=== PATIENT | female | born 1945 | race Caucasian/White ===

== ENCOUNTER 2018-10-02 00:20 | Inpatient (IN) | payer MEDICARE, OTHER ==
[2018-10-02] MEDS ORDERED: ONDANSETRON HCL IV 4 MG/2 ML VIAL IV ONE (00:39)
[2018-10-02] MEDS ORDERED: SODIUM CHLORIDE 0.9% 500 ML IV ONE (00:39)
--- NOTE | 2018-10-02 00:39 | Emergency Department Record ---
History of Present Illness - General Chief Complaint: Chest Pain Stated Complaint: STOMACH CHEST PAIN Time Seen by Provider: 10/02/18 00:29 Source: Patient Mode of Arrival: Ambulatory Limitations: No limitations - History of Present Illness Initial Comments: The patient is here due to upper abdominal pain over the last 3 hours. The pain came on fairly quickly and intermittently radiates up into the chest and even to the back at times. She has had nausea but no vomiting. The patient denies any lower AP, recent fever, chills, CP, SOB or RUTH. She also denies any hx of any abdominal surgeries. The patient states she may have had a reaction to IV dye in the past but is not sure. She thinks she had a rash to it but had no RUTH , SOB, swelling, or trouble swallowing. MD Complaint: Other Onset/Timin -: Days(s) Onset: During rest Pain Location: Substernal Severity: Severe Severity scale (1-10): 9 Quality: Sharp, Tightness Consistency: Constant, Getting worse Improves With: Nothing Worsens With: Nothing Treatments Prior to Arrival: None - Related Data Home Medications Medication Instructions Recorded Confirmed Last Taken Levothyroxine Sodium [Levoxyl] 100 mcg PO DAILY 10/02/18 10/02/18 Unknown Allergies Allergy/AdvReac Type Severity Reaction Status Date / Time DYE? AdvReac MINOR RASH Uncoded 10/02/18 01:06 Travel Screening - Travel/Exposure Within Last 30 Days Have you traveled within the last 30 days?: No Review of Systems Constitutional: Denies: Chills, Fever Eyes: Denies: Eye discharge ENT: Denies: Congestion Respiratory: Denies: Cough, Dyspnea Cardiovascular: Denies: Arrhythmia Endocrine: Denies: Fatigue Gastrointestinal: Denies: Abdominal pain Genitourinary: Denies: Dysuria Musculoskeletal: Denies: Arthralgia Skin: Denies: Bruising Past Medical History - SOCIAL HISTORY Smoking Status: Never smoker Alcohol Use: None Drug Use: None - RESPIRATORY Hx Respiratory Disorders: No - CARDIOVASCULAR Hx Cardio Disorders: No - NEURO Hx Neuro Disorders: No - GI Hx GI Disorders: No - Hx Genitourinary Disorders: No - ENDOCRINE Hx Endocrine Disorders: No - MUSCULOSKELETAL Hx Musculoskeletal Disorders: No - PSYCH Hx Psych Problems: No - HEMATOLOGY/ONCOLOGY Hx Hematology/Oncology Disorders: No Family Medical History Any Significant Family History?: No Physical Exam - General General Appearance: Alert, Oriented x3, Cooperative, Mild distress (due to AP.) - Head Head exam: Atraumatic, Normocephalic - Eye Eye exam: Normal appearance, PERRL - ENT Throat exam: Normal inspection. negative: Tonsillar erythema, Tonsillar exudate - Neck Neck exam: Normal inspection, Full ROM. negative: Tenderness - Respiratory Respiratory exam: Normal lung sounds bilaterally. negative: Respiratory distress - Cardiovascular Cardiovascular Exam: Regular rate, Normal rhythm, Normal heart sounds - GI/Abdominal GI/Abdominal exam: Soft, Tenderness (There is reproducible epigastric tenderness.). negative: Rebound, Rigid - Extremities Extremities exam: Normal inspection, Full ROM, Normal capillary refill. negative: Tenderness - Neurological Neurological exam: Alert, Normal gait. negative: Abnormal gait, Motor sensory deficit Course Vital Signs 10/02/18 00:27 Temperature 98.0 F Pulse Rate 67 Respiratory 20 Rate Blood Pressure 189/102 Pulse Ox 97 - Reevaluation(s) Reevaluation #1: The patient is doing a lot better at this time. Her pain is much improved after the Dilaudid. It appears the patient's Lipase is very elevated which I do believe is the cause of her symptoms. 10/02/18 01:15 Reevaluation #2: The patient is doing better at this time. Her pain is mostly gone and she now is resting comfortably. We are waiting on her CT at this time. 10/02/18 02:01 Reevaluation #3: The patient is still having some pain in the upper abdomen but is improved. I did again discuss the diagnosis of Pancreatitis with her and the need for hospital admission. The CT also does demonstrate stranding around the pancreas. We will place a consult to Dr. Larose for this AM and continue with the admission process. 10/02/18 02:39 Medical Decision Making - Data Complexity MDM Data: Labs Ordered and/or Reviewed, X-Ray Ordered and/or Reviewed, EKG Ordered and/or Reviewed - Lab Data Result diagrams: 10/02/18 00:35 10/02/18 00:35 - EKG Data -: EKG Interpreted by Me EKG: No Acute Changes, Normal EKG - Radiology Data Radiology results: Report reviewed (CT: pancreatitis.) Disposition Disposition: Admit Clinical Impression: Pancreatitis, acute Qualifiers: Pancreatitis type: other Acute pancreatitis complication: unspecified Qualified Code(s): K85.80 - Other acute pancreatitis without necrosis or infection Disposition: Still a Patient at [facility] Decision to Admit: Admit from ER Decision to Admit Date: 10/02/18 Decision to Admit Time: 02:41 Accepting Physician: Louie Condition: (2) Stable Referrals: [facility] Specialty Clinics [Provider Group] Forms: Patient Portal Access Time of Disposition: 02:41 Quality - Quality Measures Quality Measures: N/A - Blood Pressure Screening View Details: Yes Does Patient Have Any of the Following: No Blood Pressure Classification: Hypertensive Reading Systolic Measurement: 189 Diastolic Measurement: 102 Screening for High Blood Pressure: < First Hypertensive BP, F/U Documented > [ [id number]] First Hypertensive Follow-up Interventions: Referral to alternative/primary care provider.
[2018-10-02] MEDS ORDERED: HYDROMORPHONE HCL 2 MG/ML VIAL IVP ONE ×2 (00:40→02:34)
[2018-10-02 01:00] LABS: BASO % 0.1 % (0-6); EOS % 1.3 % (0-6); GRAN % 77.9 % (47-80); HEMATOCRIT 41.3 % (35.0-47.0); HEMOGLOBIN 13.2 gm/dl (11.6-16.0); LYMPH % 15.2 % (16-45); MEAN CELL VOLUME 89.4 fl (81-97); MEAN CORPUSCULAR HEMOGLOBIN 28.6 pg (27-33); MEAN PLATELET VOLUME 9.4 fl (7.4-10.4); MONO % 5.5 % (0-9); PLATELET COUNT 328 K/uL (130-400); RED BLOOD COUNT 4.62 M/uL (3.80-5.40); RED CELL DISTRIBUTION WIDTH 14.7 % (11.5-14.5); WHITE BLOOD COUNT W/O DIFF 11.6 K/uL (4.2-12.2)
[2018-10-02 01:06] LABS: BLOOD UREA NITROGEN 20 mg/dL (8-23)
[2018-10-02 01:07] LABS: CREATININE 0.9 mg/dL (0.5-0.9); EST GLOMERULAR FILTRATION RATE > 60 mL/min; TOTAL PROTEIN 7.1 g/dL (6.6-8.7)
[2018-10-02 01:09] LABS: GLUCOSE,RANDOM 185 mg/dL (74-109)
[2018-10-02 01:12] LABS: ALBUMIN 4.2 g/dL (4.0-5.0); ALKALINE PHOSPHATASE 96 U/L (35-104); ALT/SGPT 12 U/L (<33); AST/SGOT 13 U/L (10.0-35.0); BILIRUBIN,DIRECT < 0.2 mg/dL (0-0.3)
[2018-10-02] MEDS ORDERED: 0.9 % SODIUM CHLORIDE 1,000 ML BAG IV ONE (01:17)
[2018-10-02 01:22] LABS: LIPASE > 3000 U/L (13-60)
[2018-10-02] MEDS: 0.9 % SODIUM CHLORIDE 1000ML 1,000 ML IV PRN ×3 (03:00→21:50)
[2018-10-02] MEDS ORDERED: ONDANSETRON HCL IV 4 MG/2 ML VIAL IVP PRN (03:20)
[2018-10-02] MEDS ORDERED: PNEUM 23-VAL ADULT IM ONE (03:29)
[2018-10-02] MEDS: HYDROMORPHONE HCL 2 MG/ML VIAL IV PRN ×2 (06:00→09:54)
[2018-10-02 06:39] LABS: HEMOGLOBIN 11.9 gm/dl (11.6-16.0); MEAN CELL VOLUME 89.6 fl (81-97); MEAN CORPUSCULAR HEMOGLOBIN 28.1 pg (27-33); MEAN CORPUSCULAR HGB CONC 31.3 g/dl (32-36); MEAN PLATELET VOLUME 9.2 fl (7.4-10.4); PLATELET COUNT 276 K/uL (130-400); RED BLOOD COUNT 4.24 M/uL (3.80-5.40); RED CELL DISTRIBUTION WIDTH 14.7 % (11.5-14.5); WHITE BLOOD COUNT W/O DIFF 7.7 K/uL (4.2-12.2)
[2018-10-02 06:57] LABS: BLOOD UREA NITROGEN 16 mg/dL (8-23); CREATININE 0.6 mg/dL (0.5-0.9); EST GLOMERULAR FILTRATION RATE > 60 mL/min; GLUCOSE,RANDOM 158 mg/dL (74-109)
[2018-10-02 07:08] LABS: PLATELET ESTIMATE NORMAL (NORMAL)
[2018-10-02 07:09] LABS: LIPASE 2020 U/L (13-60)
--- NOTE | 2018-10-02 08:29 | CT SCAN REPORT ---
EXAM: CT OF THE ABDOMEN AND PELVIS WITHOUT CONTRAST HISTORY: EPIGASTRIC PAIN AND VOMITING FOR ONE DAY. TECHNIQUE: Helical CT examination of the abdomen and pelvis was performed without oral or intravenous contrast administration. Lack of oral and IV contrast utilization limits evaluation of the bowel and solid viscera respectively. Comparison: CT angiogram of the chest with contrast dated 06/04/12. Abdominal ultrasound dated 06/12/12. FINDINGS: A moderate sized hiatal hernia is present. The heart is not enlarged. No pleural or pericardial effusion. Mild patchy opacities within the dependent lung bases, likely atelectasis. There is redemonstration of a well circumscribed hypodense mass within the central right liver lobe measuring 2.2 x 2.3 cm. This has a density of 42 Hounsfield units. This mass is echogenic on prior 2012 ultrasound examination. It has not significantly changed in size since 2012. Hemangioma is the most likely etiology. Focal fatty infiltration is less likely. The liver is otherwise normal in appearance. The gallbladder is without stone, wall thickening, or pericholecystic fluid. No biliary ductal dilatation. The spleen, adrenal glands, and kidneys are normal in appearance. There is peripancreatic fat stranding associated with a small amount of fluid within the anterior pararenal space both on the right and the left. These findings are suspicious for acute pancreatitis. Duodenitis is less likely. No extraluminal air. No intraabdominal nor retroperitoneal lymphadenopathy. Mild diffuse atherosclerosis without aneurysmal dilatation of the abdominal aorta nor iliac artery. There is coarse calcification in the posterior aspect of the uterine body/fundus. This measures 7 mm in maximum diameter and is likely vascular or a calcified fibroid. There is a low density left adnexal mass measuring 3.8 x 3.1 cm. This has fluid density and is likely a benign cyst though cystic neoplasm would be difficult to entirely exclude. No other evidence of pelvic mass nor adenopathy though evaluation of the inferior pelvis is limited by beam hardening artifact from a right hip prosthesis. No intrinsic urinary bladder abnormality. No gross bowel dilatation. Occasional diverticula are noted within the left colon without evidence of diverticulitis. The appendix is visualized and normal in appearance. There is a small fat filled umbilical hernia. No suspicious lytic or blastic bone lesion. There are cystic changes within the superolateral aspect of the [place] right acetabulum, likely degenerative. There are degenerative changes scattered throughout the visualized spine. IMPRESSION: 1. THERE IS PERIPANCREATIC FAT STRANDING/EDEMA WITH A SMALL AMOUNT OF FLUID WITHIN THE ANTERIOR PARARENAL SPACE BOTH ON THE RIGHT AND THE LEFT. THESE FINDINGS ARE SUSPICIOUS FOR ACUTE PANCREATITIS. DUODENITIS IS LESS LIKELY. 2. COLONIC DIVERTICULOSIS WITHOUT EVIDENCE OF DIVERTICULITIS. 3. HIATAL HERNIA. 4. HYPERDENSE MASS IN THE CENTRAL RIGHT LIVER LOBE UNCHANGED SINCE 2012. THIS IS LIKELY A BENIGN HEMANGIOMA. 5. THERE IS A SIMPLE APPEARING CYSTIC MASS ARISING FROM THE LEFT OVARY. BENIGN CYST IS THE FAVORED ETIOLOGY. FURTHER EVALUATION WITH PELVIC ULTRASOUND ON AN OUTPATIENT BASIS WOULD BE OF BENEFIT. [facility]BER: [id number] [facility]
[2018-10-02] MEDS: PANTOPRAZOLE SODIUM IV 40 MG VIAL IV SCH (09:50)
--- NOTE | 2018-10-02 12:21 | History & Physical ---
History of Present Illness - Date of Service Date of Service for History & Physical: 10/02/18 - History of Present Illness Admitting Diagnosis: 1. Acute Pancreatitis History of Present Illness: Mrs. Collins presented to the ED early this morning with c/o upper abdominal pain that had abruptly began 3 hours prior. She stated that the pain intermittently readiated up into her chest and to her back at times. She c/o nausea, no vomiting. She denied any lower abdominal pain, fever, chills, SOB or RUTH. She denies hx of abdominal surgeries. Her history includes hypothyroidism. She denies hx of ETOH use or previous pancreatitis. In the ED, her BP was 189/102, HR 67, RR 20, T 98.0, and 97% on room air. Labs demonstrated d dimer of 1.2, amylase of >3,000. CT demonstrated stranding around pancreas. She was admitted for pancreatitis, consult to Dr. Larose ordered. Plan IV hydration, pain management. 10/02/18: 1100- Dr. Larose saw pt and is ordering abdominal ultrasound, bilateral LE dopplers (for elevated D dimer), and total bili for tomorrow morning. Amylase this morning was 2,020. Pt. reports improved abdominal pain. Plan to continue NPO, pain management with IV dilaudid 0.5mg q4h prn, zofran 4mg ivp q4h prn nausea, protonix 40mg/day IV, and IVF at 125ml/hr. PCP: Travel Screening - Travel/Exposure Within Last 30 Days Have you traveled within the last 30 days?: No - Travel/Exposure Within Last Year Have you traveled outside the [place] in the last year?: No - Additonal Travel Details Have you been exposed to anyone with a communicable illness?: No - Travel Symptoms Symptom Screening: None Review of Systems Constitutional: Denies: Chills, Fever Eyes: Denies: Eye discharge ENT: Denies: Congestion Respiratory: Denies: Cough, Dyspnea Cardiovascular: Denies: Arrhythmia Endocrine: Denies: Fatigue Gastrointestinal: Denies: Abdominal pain Genitourinary: Denies: Dysuria Musculoskeletal: Denies: Arthralgia Skin: Denies: Bruising Past Medical History - SOCIAL HISTORY Smoking Status: Never smoker Alcohol Use: None Drug Use: None - RESPIRATORY Hx Respiratory Disorders: No - CARDIOVASCULAR Hx Cardio Disorders: No - NEURO Hx Neuro Disorders: No - GI Hx GI Disorders: No - Hx Genitourinary Disorders: No - ENDOCRINE Hx Endocrine Disorders: Yes Hx Diabetes: No Hx Thyroid Disease: Yes - MUSCULOSKELETAL Hx Musculoskeletal Disorders: No - PSYCH Hx Psych Problems: No - HEMATOLOGY/ONCOLOGY Hx Hematology/Oncology Disorders: No Family Medical History Any Significant Family History?: No H&P Meds/Allergies - Allergies Allergies: Allergies Allergy/AdvReac Type Severity Reaction Status Date / Time DYE? AdvReac MINOR RASH Uncoded 10/02/18 01:06 - Home Medications Home Medications Medication Instructions Recorded Confirmed Last Taken Levothyroxine Sodium [Levoxyl] 100 mcg PO DAILY 10/02/18 10/02/18 Unknown - Active Medications Active Medications: Current Medications Hydromorphone HCl (Dilaudid) 0.5 mg IV Q4H PRN PRN Reason: ABDOMINAL PAIN Last Admin: 10/02/18 09:54 Dose: 0.5 mg Sodium Chloride () 1,000 mls @ 125 mls/hr IV .Q8H PRN PRN Reason: LARGE VOLUME IV Last Admin: 10/02/18 11:26 Dose: 125 mls/hr Levothyroxine Sodium (Synthroid) 100 mcg PO DAILYTHY ENRIQUE Ondansetron HCl (Zofran) 4 mg IVP Q4H PRN PRN Reason: NAUSEA Last Admin: 10/02/18 06:05 Dose: 4 mg Pantoprazole Sodium (Protonix Iv) 40 mg IV DAILY ENRIQUE Last Admin: 10/02/18 09:50 Dose: 40 mg Physical Exam - Vital Signs Vital Signs: Vital Signs - Last 24 Hrs Temp Pulse Pulse Resp BP BP Pulse Ox 10/02/18 09:00 12 10/02/18 08:09 97.8 F 60 12 120/55 98 10/02/18 05:20 98.4 F 56 L 18 125/74 99 10/02/18 03:20 97.5 F L 77 18 158/79 99 10/02/18 02:54 78 20 165/86 95 10/02/18 02:00 77 20 160/105 98 10/02/18 00:27 98.0 F 67 20 189/102 97 - General General Appearance: Alert, Oriented x3, Cooperative, No acute distress Limitations: No limitations - Head Head exam: Atraumatic, Normocephalic - Eye Eye exam: Normal appearance, PERRL - ENT Throat exam: Normal inspection. negative: Tonsillar erythema, Tonsillar exudate - Neck Neck exam: Normal inspection, Full ROM. negative: Tenderness - Respiratory Respiratory exam: Normal lung sounds bilaterally. negative: Respiratory distress - Cardiovascular Cardiovascular Exam: Regular rate, Normal rhythm, Normal heart sounds - GI/Abdominal GI/Abdominal exam: Soft. negative: Rebound, Rigid, Tenderness - Extremities Extremities exam: Normal inspection, Full ROM, Normal capillary refill. negative: Tenderness - Neurological Neurological exam: Alert, Normal gait. negative: Abnormal gait, Motor sensory deficit Results - Labs Result Diagrams: 10/02/18 06:17 10/02/18 06:17 Labs Last 24 Hours: Laboratory Results - last 24 hr 10/02/18 10/02/18 10/02/18 00:35 00:35 00:35 WBC 11.6 RBC 4.62 Hgb 13.2 Hct 41.3 MCV 89.4 MCH 28.6 MCHC 32.0 RDW 14.7 H Plt Count 328 MPV 9.4 Gran % 77.9 Neutrophils % Lymphocytes % 15.2 L Monocytes % 5.5 Eosinophils % 1.3 Basophils % 0.1 Lymphocytes Monocytes Platelet Estimate RBC Morphology D-Dimer 1.20 H Sodium 140 Potassium 4.0 Chloride 102 Carbon Dioxide 25.0 Anion Gap 13.0 BUN 20 Creatinine 0.9 Estimated GFR > 60 Random Glucose 185 H Lactic Acid Cancelled Calcium 9.5 Total Bilirubin 1.20 H Direct Bilirubin < 0.2 AST 13 ALT 12 Alkaline Phosphatase 96 Troponin T < 0.010 Total Protein 7.1 Albumin 4.2 Lipase > 3000 H 10/02/18 10/02/18 10/02/18 00:50 06:17 06:17 WBC 7.7 RBC 4.24 Hgb 11.9 Hct 38.0 MCV 89.6 MCH 28.1 MCHC 31.3 L RDW 14.7 H Plt Count 276 MPV 9.2 Gran % Neutrophils % 80.0 Lymphocytes % Monocytes % Eosinophils % Not Reportable Basophils % Not Reportable Lymphocytes 17.0 Monocytes 3.0 Platelet Estimate Normal RBC Morphology Normal D-Dimer Sodium 141 Potassium 4.1 Chloride 107 Carbon Dioxide 23.0 Anion Gap 11.0 BUN 16 Creatinine 0.6 Estimated GFR > 60 Random Glucose 158 H Lactic Acid 1.6 Calcium 8.4 L Total Bilirubin Direct Bilirubin AST ALT Alkaline Phosphatase Troponin T Total Protein Albumin Lipase 2019 H - Imaging and Cardiology CT scan - abdomen Status: Report reviewed (CT demonstrated fat stranding/edema with sm fluid around pancreas) VTE H&P Assessment - Risk for VTE Risk for VTE: Yes Risk Level: Low Risk Assessment Date: 10/02/18 Risk Assessment Time: 12:22 VTE Orders Placed or Will Be Placed: Yes Plan - Inpatient Certification Inpatient Certification: Admit to inpatient care: Based on my medical assessment, after consideration of patient's risk factors (age, co-morbidities and patient presenting symptoms and acuity), I expect that this patient will remain in the hospital greater than or equal to two midnights and that the services needed warrant inpatient care because: Patient Risk Factors: [] Estimated length of stay: [] The patient may reasonably be expected to be discharged or transferred to a hospital within 96 hours after admission to [facility]. Services needed: [] Post hospital care (if known): [] I certify that my determination is in accordance with my understanding of Medicare requirements for reasonable and necessary inpatient services. - Detailed Diagnosis and Plan (1) Pancreatitis, acute Current Visit: Yes Status: Acute Qualifiers: Pancreatitis type: other Acute pancreatitis complication: unspecified Qualified Code(s): K85.80 - Other acute pancreatitis without necrosis or infection Base Code: K85.90 - ACUTE PANCREATITIS WITHOUT NECROSIS OR INFECTION, UNSP Comment: 10/02/18: -CT demonstrated fat stranding/edema with sm fluid around pancreas -Dr. Larose saw pt and is ordering abdominal ultrasound, bilateral LE dopplers ( for elevated D dimer), and total bili for tomorrow morning. -Amylase this morning was 2,020. -Pt. reports improved abdominal pain. -Plan to continue NPO, pain management with IV dilaudid 0.5mg q4h prn, zofran 4mg ivp q4h prn nausea, protonix 40mg/day IV, and IVF at 125ml/hr. (2) Elevated d-dimer Current Visit: Yes Status: Acute Base Code: R79.89 - OTHER SPECIFIED ABNORMAL FINDINGS OF BLOOD CHEMISTRY Comment: 10/02/18: -D-dimer in ED was 1.20 -Bilateral LE dopplers ordered today (3) At risk for deep venous thrombosis Current Visit: Yes Status: Acute Base Code: Z91.89 - OTH PERSONAL RISK FACTORS, NOT ELSEWHERE CLASSIFIED Comment: 10/02/18: -40mg SC lovenox ordered for prophylaxis (4) Full code status Current Visit: Yes Status: Acute Base Code: Z78.9 - OTHER SPECIFIED HEALTH STATUS Comment: 10/02/18: -Pt. is a full code
[2018-10-02] MEDS: LEVOTHYROXINE SODIUM 100 MCG TABLET PO SCH (12:39)
[2018-10-02] MEDS: HYDROCODONE/APAP 5/325MG TABLET PO PRN (20:40)
[2018-10-02] MEDS ORDERED: ENOXAPARIN 40 MG/0.4 ML SYR SQ SCH (22:00)
--- NOTE | 2018-10-03 05:01 | ULTRASOUND REPORT ---
EXAM: COMPLETE ABDOMEN ULTRASOUND HISTORY: PANCREATITIS, ABDOMINAL PAIN. TECHNIQUE: Complete abdomen ultrasound was obtained. Comparison: CT of the abdomen and pelvis 10/02/18. FINDINGS: Limited visualization of the pancreas due to shadowing bowel gas, better seen on same day CT. The visualized abdominal aorta appears nondilated. Unremarkable appearance of the visualized hepatic parenchyma, some areas are poorly seen due to shadowing artifact. The right renal length is 9.2 cm. No hydronephrosis. No shadowing calculus or focal mass demonstrated. Mobile calculus within the gallbladder lumen. No gallbladder wall thickening or pericholecystic fluid seen. The common bile duct measures up to 4 mm in diameter. The spleen measures 10.2 cm in length. Unremarkable appearance of the visualized parenchyma. The left renal length is 11.6 cm. No hydronephrosis, shadowing calculus, or focal mass demonstrated. Unremarkable appearance of the inferior vena cava at the level of the liver. IMPRESSION: 1. CHOLELITHIASIS WITHOUT SONOGRAPHIC EVIDENCE OF ACUTE CHOLECYSTITIS. 2. NO BILIARY DUCTAL DILATATION. 3. LIMITED VISUALIZATION OF THE PANCREAS DUE TO SHADOWING BOWEL GAS. JOB NUMBER: [id number] [facility]
--- NOTE | 2018-10-03 05:08 | US VENOUS DOPPLER REPORT ---
EXAM: BILATERAL LOWER EXTREMITY VENOUS DUPLEX ULTRASOUND HISTORY: OCCASIONAL RIGHT LEG PAIN, BILATERAL ANKLE SWELLING. TECHNIQUE: Bilateral lower extremity venous Duplex ultrasound was obtained with assessment of compression, augmentation and color flow. Comparison: None. FINDINGS: No evidence of thrombus within the right external iliac, common femoral, profunda femoral, proximal/mid/distal femoral, popliteal, gastrocnemius , peroneal, posterior tibial, or anterior tibial veins. No evidence of thrombus within the left external iliac, common femoral, profunda femoral, proximal/mid/distal femoral, popliteal, gastrocnemius, posterior tibial, peronea, or anterior tibial veins. Target examination in area of a described palpable abnormality in the right popliteal fossa, in this region there is a ovoid solid appearing structure of similar echogenicity to adjacent superficial fat measuring approximately 3.5 x 1.3 x 4.6 cm. IMPRESSION: 1. NO EVIDENCE OF DEEP VENOUS THROMBOSIS IN EITHER LOWER EXTREMITY. 2. SOLID APPEARING ECHOGENIC STRUCTURE IN THE RIGHT POPLITEAL FOSSA, REPORTEDLY CORRESPONDING TO A PALPABLE LUMP. ITS APPEARANCE IS INDETERMINATE BY ULTRASOUND, BUT COULD REPRESENT A LIPOMATOUS LESION SUCH A LIPOMA. JOB [facility]BER: [id number] [facility]
[2018-10-03] MEDS: 0.9 % SODIUM CHLORIDE 1000ML 1,000 ML IV PRN (05:52)
[2018-10-03] MEDS: LEVOTHYROXINE SODIUM 100 MCG TABLET PO SCH (05:59)
[2018-10-03] MEDS: HYDROCODONE/APAP 5/325MG TABLET PO PRN (06:04)
[2018-10-03 06:31] LABS: BASO % 0.1 % (0-6); GRAN % 77.6 % (47-80); HEMOGLOBIN 12.3 gm/dl (11.6-16.0); LYMPH % 15.4 % (16-45); MEAN CORPUSCULAR HEMOGLOBIN 29.1 pg (27-33); MEAN CORPUSCULAR HGB CONC 32.4 g/dl (32-36); MONO % 5.9 % (0-9); PLATELET COUNT 245 K/uL (130-400); RED BLOOD COUNT 4.22 M/uL (3.80-5.40); RED CELL DISTRIBUTION WIDTH 14.7 % (11.5-14.5); WHITE BLOOD COUNT W/O DIFF 7.9 K/uL (4.2-12.2)
[2018-10-03 06:53] LABS: ALB/GLOB RATIO 1.4 (1.1-1.8); ALBUMIN 3.7 g/dL (4.0-5.0); ALKALINE PHOSPHATASE 78 U/L (35-104); ALT/SGPT 9 U/L (<33); AST/SGOT 10 U/L (10.0-35.0); BLOOD UREA NITROGEN 8 mg/dL (8-23); CREATININE 0.6 mg/dL (0.5-0.9); EST GLOMERULAR FILTRATION RATE > 60 mL/min; GLUCOSE,RANDOM 148 mg/dL (74-109); LIPASE 279 U/L (13-60); TOTAL PROTEIN 6.4 g/dL (6.6-8.7)
--- NOTE | 2018-10-03 09:50 | Medical Records Consult ---
DATE OF CONSULTATION: 10/02/2018 REASON FOR CONSULTATION: Pancreatitis. INDICATIONS: The patient is a 72-year-old female who states she suffered an acute onset of abdominal pain last night. She described this as in her mid abdomen with some radiation to her chest. She denied any shortness of breath, fevers, chills, or other. She was mildly nauseated with this. She stated that she may have had something similar happen to her in the past but she is unclear. PAST MEDICAL HISTORY: Negative for any significant illnesses. Hypothyroidism. PAST SURGICAL HISTORY: She denies any abdominal surgery. MEDICATIONS: Synthroid. ALLERGIES: IV DYE. SOCIAL HISTORY: She denies any smoking history. She has 1-2 beers every month or so. PHYSICAL EXAMINATION: VITAL SIGNS: Stable. She is afebrile. HEART: Regular rate and rhythm. LUNGS: Clear. ABDOMEN: Soft. Mild epigastric tenderness. There is no guarding or rebound. Bowel sounds are noted. EXTREMITIES: +1 edema. DIAGNOSTIC DATA: I did review her laboratory values and imaging studies which were done at [facility]. Laboratory values reveal admission lipase at 2020 but this did come up to over 3000 today. Her bili this morning was 1.2. This was not fractionated. She also had an elevated D-dimer at 1.2. White count was 11.6. CT scan was done which did show peripancreatic edema consistent with pancreatitis. IMPRESSION AND PLAN: 1. Pancreatitis, unknown clear etiology. She denies any significant alcohol history. I will obtain an abdominal ultrasound to better delineate her gallbladder. Her bilirubin is 1.2. This should be redrawn tomorrow. 2. Bilateral leg pain. The patient states that this has been going on for a bit. Due to the leg pain as well as elevated D-dimer, I did order a Doppler of bilateral lower extremities. This will be done today. I would continue aggressive IV resuscitation, monitor her urine output closely. If there are no gallstones on ultrasound or sludge, this certainly may be idiopathic pancreatitis and she could avoid an operation in the future. We will follow along with you. Thank you for this referral. CC: Kyle Palma MD [facility]ENTER[facility]ela
[2018-10-03] MEDS: PANTOPRAZOLE SODIUM IV 40 MG VIAL IV SCH (10:30)
--- NOTE | 2018-10-03 11:00 | Discharge Summary ---
Providers Discharge Summary Date: 10/03/18 Date of admission: 10/02/18 03:06 Expected Date of Discharge: 10/03/18 Attending physician: HERLINDA ALVAREZ Primary care physician: TYLER ACEVEDO N.P. Consults: Consult Orders 10/02/18 02:42 Consult NOW Consulting Provider: Farooq Larose Physician Instructions: Please eval today 10/02. Reason For Exam: acute pancreatitis Physical Exam - Vital Signs Vital Signs: Vital Signs - Last 24 Hrs Temp Pulse Resp BP Pulse Ox 10/03/18 04:00 98.0 F 73 20 135/67 96 10/02/18 20:00 97.6 F 70 20 137/60 96 10/02/18 16:00 62 12 124/68 10/02/18 12:00 97.8 F 59 L 12 114/64 96 - General General Appearance: Alert, Oriented x3, Cooperative, No acute distress Limitations: No limitations - Head Head exam: Atraumatic, Normocephalic - Eye Eye exam: Normal appearance, PERRL - ENT Throat exam: Normal inspection. negative: Tonsillar erythema, Tonsillar exudate - Neck Neck exam: Normal inspection, Full ROM. negative: Tenderness - Respiratory Respiratory exam: Normal lung sounds bilaterally. negative: Respiratory distress - Cardiovascular Cardiovascular Exam: Regular rate, Normal rhythm, Normal heart sounds - GI/Abdominal GI/Abdominal exam: Soft. negative: Rebound, Rigid, Tenderness - Extremities Extremities exam: Normal inspection, Full ROM, Normal capillary refill. negative: Tenderness - Neurological Neurological exam: Alert, Normal gait. negative: Abnormal gait, Motor sensory deficit Hospitalization - Hospitalization Admission Diagnosis: 1. Acute Pancreatitis - Problem List/Discharge Diagnosis (1) Pancreatitis, acute Status: Acute Discharge Diagnosis: Pancreatitis type: other Acute pancreatitis complication: unspecified Qualified Code(s): K85.80 - Other acute pancreatitis without necrosis or infection Base Code: K85.90 - ACUTE PANCREATITIS WITHOUT NECROSIS OR INFECTION, UNSP Comment: 10/03/18: -CT demonstrated fat stranding/edema with sm fluid around pancreas - Dr Larose surgical consult complete yesterday. Abdominal U/S completed and BLE venous dopplers. U/S- cholelithiasis without acute cholecystitis. Dopplers negative for DVT - Total bili up to 2.3 -Amylase this morning 279 -Pt. reports improved abdominal pain, but increased bloating. - Discussed today's findings with Dr Larose and will transfer to [facility] for GI consult and MRCP. (2) Elevated d-dimer Status: Acute Base Code: R79.89 - OTHER SPECIFIED ABNORMAL FINDINGS OF BLOOD CHEMISTRY Comment: 10/03/18: -D-dimer in ED was 1.20 -Bilateral LE dopplers negative for DVT (3) At risk for deep venous thrombosis Status: Acute Base Code: Z91.89 - OTH PERSONAL RISK FACTORS, NOT ELSEWHERE CLASSIFIED Comment: 10/03/18: -40mg SC lovenox ordered for prophylaxis (4) Full code status Status: Acute Base Code: Z78.9 - OTHER SPECIFIED HEALTH STATUS Comment: 10/03: -Pt. is a full code - Hospitalization Course Disposition: Acute Care Hospital Transfer Hospital Course: Mrs. Collins presented to the ED early this morning with c/o upper abdominal pain that had abruptly began 3 hours prior. She stated that the pain intermittently readiated up into her chest and to her back at times. She c/o nausea, no vomiting. She denied any lower abdominal pain, fever, chills, SOB or RUTH. She denies hx of abdominal surgeries. Her history includes hypothyroidism. She denies hx of ETOH use or previous pancreatitis. In the ED, her BP was 189/102, HR 67, RR 20, T 98.0, and 97% on room air. Labs demonstrated d dimer of 1.2, amylase of >3,000. CT demonstrated stranding around pancreas. She was admitted for pancreatitis, consult to Dr. Larose ordered. Plan IV hydration, pain management. 10/02/18: 1100- Dr. Larose saw pt and is ordering abdominal ultrasound, bilateral LE dopplers (for elevated D dimer), and total bili for tomorrow morning. Amylase this morning was 2,020. Pt. reports improved abdominal pain. Plan to continue NPO, pain management with IV dilaudid 0.5mg q4h prn, zofran 4mg ivp q4h prn nausea, protonix 40mg/day IV, and IVF at 125ml/hr. 10/03/18- Total bilirubin increased to 2.3, complaining of increased bloating. Not tolerating clear liquid diet. Case discussed with Dr Larose and will transfer to [facility] for GI consult and MRCP. Procedures: Imaging and X-Rays 10/02/18 01:13 ABDOMEN/PELVIS WO CONTRAST [CT] Stat 10/02/18 11:31 ABDOMEN, COMPLETE [US] Stat VENOUS DOPPLER LOWER [place]T [place] [US] Stat Cardiology Procedures 10/02/18 00:37 EKG NOW Abnormal Labs: Abnormal Lab Results 10/02/18 10/02/18 10/02/18 Range/Units 00:35 00:35 00:35 MCHC (32-36) g/dl RDW 14.7 H (11.5-14.5) % Lymphocytes % 15.2 L (16-45) % D-Dimer 1.20 H (0-0.59) mg/L FEU Random Glucose 185 H (74-109) mg/dL Calcium (8.8-10.2) mg/dL Total Bilirubin 1.20 H (0.2-1.0) mg/dL Total Protein (6.6-8.7) g/dL Albumin (4.0-5.0) g/dL Lipase > 3000 H (13-60) U/L 10/02/18 10/02/18 10/03/18 Range/Units 06:17 06:17 06:25 MCHC 31.3 L (32-36) g/dl RDW 14.7 H 14.7 H (11.5-14.5) % Lymphocytes % 15.4 L (16-45) % D-Dimer (0-0.59) mg/L FEU Random Glucose 158 H (74-109) mg/dL Calcium 8.4 L (8.8-10.2) mg/dL Total Bilirubin (0.2-1.0) mg/dL Total Protein (6.6-8.7) g/dL Albumin (4.0-5.0) g/dL Lipase 2020 H (13-60) U/L 10/03/18 Range/Units 06:25 MCHC (32-36) g/dl RDW (11.5-14.5) % Lymphocytes % (16-45) % D-Dimer (0-0.59) mg/L FEU Random Glucose 148 H (74-109) mg/dL Calcium 8.4 L (8.8-10.2) mg/dL Total Bilirubin 2.30 H (0.2-1.0) mg/dL Total Protein 6.4 L (6.6-8.7) g/dL Albumin 3.7 L (4.0-5.0) g/dL Lipase 279 H (13-60) U/L Condition at Discharge: (2) Stable Discharge Medications - Discharge Medications Home Medications: Ambulatory Orders Levothyroxine Sodium [Levoxyl] 100 mcg PO DAILY 10/02/18 [Last Taken Unknown] Discharge Plan - Discharge Instructions Activity at Discharge: Increase Activity as Tolerated Diet at Discharge: Other (clear liquid) Instructions: Pancreatitis (DC) Quality Measures - Quality Measures Quality Measures: Advance Directives, Documentation of Current Medications in Medical Record, Elder Maltreatment Screen and Follow-Up Plan, Screening for High Blood Pressure and F/U Documented - Current Medications Quality Measure: Measure #130: Documentation of Current Medications Documentation of Current Medications: <Current Medications Documented/Reviewed> [G8427] - Blood Pressure Screening Quality Measure: Screening for High Blood Pressure and Follow-Up Documented Does Patient Have Any of the Following: No Blood Pressure Classification: Hypertensive Reading Systolic Measurement: 189 Diastolic Measurement: 102 Screening for High Blood Pressure: < Normal BP, F/U Not Required > [G8783] - Advance Directives Quality Measure: Measure #47: Care Plan Advance Directives Established: Yes Advance Directives Information Provided To Patient: No Advance Directives on File: No Living Will: No Power of Garment Finisher: No Advance Care Planning: <Care Plan/Decision Maker Documented; Discussed & Documented> [[id number]] - Elder Abuse Suspicion Index Screening: Elder Abuse Suspicion Index Screening Rely on people for bathing, dressing, shopping, banking, etc: No Prevented from getting food, clothes, medication, etc: No Made to feel shamed or threatened by someone: No Forced to sign papers or use money against will: No Feel afraid, touched in ways not wanted or hurt physically: No Poor eye contact, withdrawn, malnourished, cuts or bruises: No Screening Result: Negative result EASI Reference Information: Krysta OSEGUERA, Jared Hernandez, Tony D, Daniel Shah.Development and validation of a tool to assist physicians identification of elder abuse: The Elder Abuse Suspicion Index (EASI ). Journal of Elder Abuse and Neglect, 2008; 20 (3): 276-300. - Elder Maltreatment Screen Quality Measures: Elder Maltreatment Screen and Follow-Up Plan Elder Maltreatment Screen: <Negative, No Follow-Up Plan Required> [G6180]
== END 2018-10-03 11:20 | disposition short-term general hospital (02) | DRG 440 ==
LOC: ER 00:20 → MEDSURG 03:06
PROVIDERS: ADMIT Internal Medicine; ATTEND Internal Medicine
DX: K85.80 Other acute pancreatitis without necrosis or infection (principal); R10.84 Generalized abdominal pain; R79.89 Other specified abnormal findings of blood chemistry; E03.9 Hypothyroidism, unspecified
CPT/HCPCS: 74176; 76700; 80048; 80053; 80076; 83605; 83690; 84484; 85025; 85027; 85379; 93005; 93010; 93970; 96374; 96375; 96376; 99223; 99239; 99285; C9113; J1650; J2405; J7030